=== PATIENT | male | born 1985 | race Caucasian/White ===

== ENCOUNTER 2018-08-18 20:10 | Observation (INO) | payer BC ==
[2018-08-18] MEDS ORDERED: HYDROmorphone 1 MG/ML Syringe IVPUSH STA (21:02)
[2018-08-18] MEDS ORDERED: Ondansetron 4 MG/2 ML SDV IVPUSH ONE ×2 (21:02→23:31)
--- NOTE | 2018-08-18 21:07 | EDM.PDOC ---
ED HPI GENERAL MEDICAL PROBLEM - General Chief Complaint: Abdominal Pain Stated Complaint: VOMITING DIARRHEA Time Seen by Provider: 08/18/18 20:44 Source of Information: Reports: Patient, Family (), RN Notes Reviewed History Limitations: Reports: No Limitations - History of Present Illness INITIAL COMMENTS - FREE TEXT/NARRATIVE: The patient states that he developed gradual onset right upper quadrant abdominal pain around 18:00. He describes the pain as sharp in character. It is made worse with inspiration, but he has not identified any other modifiers. He developed nausea and emesis around 19:30. No recent constipation, diarrhea, or urinary symptoms. No recent fever. No recent shortness of breath or cough. No prior similar symptoms. The patient has not taken any [id number] or home remedies to treat his symptoms. The patient's last oral solid food was around 09:00 this morning. The patient's PCP is Sharon Gallegos. Right Abdomen Pain Score (Numeric/FACES): 8 - Related Data Allergies Allergy/AdvReac Type Severity Reaction Status Date / Time No Known Allergies Allergy Verified 08/18/18 20:35 Home Meds: Home Meds Multivitamin with Minerals [Multiple Vitamin] 1 tab PO DAILY 08/18/18 [History] Past Medical History HEENT History: Reports: Impaired Vision Other HEENT History: wears contacts - Infectious Disease History Infectious Disease History: Reports: Chicken Pox - Past Surgical History HEENT Surgical History: Reports: Oral Surgery (wisdom teeth extraction), Tonsillectomy Social & Family History - Tobacco Use Smoking Status *Q: Former Smoker Years of Tobacco use: 20 Packs/Tins Daily: 2 Month/Year Tobacco Last Used: Quit 2017 Second Hand Smoke Exposure: No - Caffeine Use Caffeine Use: Reports: None - Alcohol Use Alcohol Use History: Yes Alcohol Use Frequency: Rarely - Recreational Drug Use Recreational Drug Use: No - Living Situation & Occupation Living situation: Reports: , with Spouse, with Family (1 child) Occupation: Employed (stamp press operator) ED ROS GENERAL - Review of Systems Review Of Systems: ROS reveals no pertinent complaints other than HPI. ED EXAM, GI/ABD - Physical Exam Exam: See Below Exam Limited By: No Limitations General Appearance: Alert, WD/WN, Mild Distress (Appers uncomfortable) Eyes: Bilateral: Normal Appearance, EOMI Ears: Normal External Exam, Hearing Grossly Normal Nose: Normal Inspection Throat/Mouth: Normal Inspection, Normal Lips, Normal Voice, No Airway Compromise Head: Atraumatic, Normocephalic Neck: Normal Inspection, Full Range of Motion Respiratory/Chest: No Respiratory Distress, Lungs Clear, Normal Breath Sounds, No Accessory Muscle Use Cardiovascular: Normal Peripheral Pulses, No Edema, No Gallop, No JVD, No Murmur , No Rub, Irregularly Irregular (several skipped beats) GI/Abdominal Exam: Normal Bowel Sounds, Soft, Non-Tender (including the RUQ), No Organomegaly, No Distention, No Abnormal Bruit, No Mass (Male) Exam: Deferred Rectal (Males) Exam: Deferred Back Exam: Normal Inspection, Full Range of Motion, CVA Tenderness (R) (mild). No: CVA Tenderness (L) Extremities: Normal Inspection, Normal Range of Motion, No Pedal Edema, Normal Capillary Refill Neurological: Alert, Oriented, Normal Cognition, No Motor/Sensory Deficits Psychiatric: Normal Affect Skin Exam: Warm, Dry, Intact, Normal Color, No Rash Course - Vital Signs Last Recorded V/S: Last Vital Signs Temp 36.7 C 08/19/18 00:30 Pulse 96 08/19/18 00:30 Resp 18 08/19/18 00:30 BP 152/95 H 08/19/18 00:30 Pulse Ox 97 08/19/18 00:30 - Orders/Labs/Meds Orders: Active Orders 24 hr Category Date Time Status Abdomen Pelvis w Cont [CT] Stat Exams 08/18/18 21:02 Taken Sodium Chloride 0.9% [Normal Saline] 1,000 ml Med 08/18/18 21:15 Active IV ASDIRECTED Medication Orders Hydromorphone HCl (Dilaudid) 1 mg IVPUSH Q2H PRN PRN Reason: pain Sodium Chloride (Normal Saline) 1,000 mls @ 150 mls/hr IV ASDIRECTED LYNDA Last Admin: 08/18/18 21:12 Dose: 150 mls/hr Ondansetron HCl (Zofran) 4 mg IVPUSH Q6H PRN PRN Reason: Nausea Labs: Laboratory Tests 08/18/18 08/18/18 08/18/18 Range/Units 20:55 20:55 22:13 WBC 11.05 H (4.23-9.07) K/mm3 RBC 5.26 (4.63-6.08) M/mm3 Hgb 15.7 (13.7-17.5) gm/L Hct 46.0 (40.1-51.0) % MCV 87.5 (79.0-92.2) fl MCH 29.8 (25.7-32.2) pg MCHC 34.1 (32.2-35.5) g/dl RDW Std Deviation 41.4 (35.1-43.9) fL Plt Count 255 (163-337) K/mm3 MPV 10.5 (9.4-12.3) fl Neutrophils % (Manual) 75 H (40-60) % Band Neutrophils % 0 (0-10) % Lymphocytes % (Manual) 15 L (20-40) % Atypical Lymphs % 0 % Monocytes % (Manual) 9 (2-10) % Eosinophils % (Manual) 1 (0.8-7.0) % Basophils % (Manual) 0 L (0.2-1.2) Platelet Estimate Adequate RBC Morph Comment Normal Sodium 138 (136-145) mEq/L Potassium 3.7 (3.5-5.1) mEq/L Chloride 102 (98-107) mEq/L Carbon Dioxide 20 L (21-32) mEq/L Anion Gap 19.7 H (5-15) BUN 19 H (7-18) mg/dL Creatinine 1.0 (0.7-1.3) mg/dL Est Cr Clr Drug Dosing 109.81 mL/min Estimated GFR (MDRD) > 60 (>60) mL/min BUN/Creatinine Ratio 19.0 H (14-18) Glucose 108 H (74-106) mg/dL Calcium 10.1 (8.5-10.1) mg/dL Total Bilirubin 0.7 (0.2-1.0) mg/dL AST 22 (15-37) U/L ALT 47 (16-63) U/L Alkaline Phosphatase 84 (46-116) U/L Total Protein 7.2 (6.4-8.2) g/dl Albumin 4.4 (3.4-5.0) g/dl Globulin 2.8 gm/dL Albumin/Globulin Ratio 1.6 (1-2) Lipase 88 (73-393) U/L Urine Color Yellow (Yellow) Urine Appearance Clear (Clear) Urine pH 5.5 (5.0-8.0) Ur Specific [place] > or = 1.030 (1.005-1.030) Urine Protein Negative (Negative) Urine Glucose (UA) Negative (Negative) Urine Ketones 4+ H (Negative) Urine Occult Blood 1+ H (Negative) Urine Nitrite Negative (Negative) Urine Bilirubin 1+ H (Negative) Urine Urobilinogen 0.2 (0.2-1.0) Ur Leukocyte Esterase Negative (Negative) Urine RBC 5-10 H (0-5) /hpf Urine WBC 0-5 (0-5) /hpf Ur Epithelial Cells Not seen (0-5) /hpf Ur Squamous Epith Cells 0-5 (0-5) /hpf Urine Bacteria Few H (FEW) /hpf Urine Mucus Few (FEW) /hpf Meds: Medications Generic Name Dose Route Start Last Admin Trade Name Freq PRN Reason Stop Dose Admin Hydromorphone HCl 1 mg 08/19/18 00:45 Dilaudid IVPUSH Q2H PRN pain Sodium Chloride 1,000 mls @ 150 mls/hr 08/18/18 21:15 08/18/18 21:12 Normal Saline IV 150 mls/hr ASDIRECTED LYNDA Administration Ondansetron HCl 4 mg 08/19/18 00:51 Zofran IVPUSH Q6H PRN Nausea Discontinued Medications Generic Name Dose Route Start Last Admin Trade Name Freq PRN Reason Stop Dose Admin Diatrizoate Meglum/Diatrizoate Sod 90 ml 08/18/18 22:24 08/18/18 22:42 Gastrografin 37% PO 08/18/18 22:25 90 ml ONETIME ONE Administration Hydromorphone HCl 1 mg 08/18/18 21:02 08/18/18 21:14 Dilaudid IVPUSH 08/18/18 21:03 1 mg ONETIME STA Administration Hydromorphone HCl 1 mg 08/18/18 23:25 08/18/18 23:29 Dilaudid IVPUSH 08/18/18 23:26 1 mg ONETIME ONE Administration Ertapenem 1 gm/ Sodium 100 mls @ 200 mls/hr 08/18/18 23:44 08/18/18 23:57 Chloride IV 08/19/18 00:13 200 mls/hr ONETIME ONE Administration Iopamidol 100 ml 08/18/18 22:24 08/18/18 22:42 Isovue-370 (76%) IV 08/18/18 22:25 100 ml ONETIME ONE Administration Ondansetron HCl 4 mg 08/18/18 21:02 08/18/18 21:14 Zofran IVPUSH 08/18/18 21:03 4 mg ONETIME ONE Administration Ondansetron HCl 4 mg 08/18/18 23:31 08/18/18 23:34 Zofran IVPUSH 08/18/18 23:32 4 mg ONETIME ONE Administration - Re-Assessments/Exams Free Text/Narrative Re-Assessment/Exam: 08/18/18 21:03 The cause of the patient's abdominal pain is not immediately clear. The location of his pain, in the right upper quadrant, strongly suggests acute cholecystitis or, perhaps, an unusual presentation of appendicitis, however, the patient has no tenderness whatsoever to palpation of his entire abdomen. His pain is induced, however, with deep inspiration, and he has diminished abdominal sounds. He has mild right CVA tenderness. I recommended a CT scan of the abdomen and pelvis, with the caveat that I have a low expectation that a diagnosis will be made, but with the advantage that we can rule out several intra-abdominal emergencies. The patient agreed. In the meantime, the patient will receive Dilaudid, Zofran, and IV fluid. 08/18/18 23:[address] Hope of [facility] at 23:25 that the patient has acute appendicitis. His appendix is retrocecal, and his cecum is high. The tip of the appendix is up by the right lobe of the liver. 08/18/18 23:38 CT of the abdomen and pelvis with oral and IV contrast is read by [facility] as: 1. Acute appendicitis. The cecum is mobile and located above the level of the right iliac crest. The appendix is retrocecal and extends above the level of the cecum. The tip of the appendix is close to the right lobe of the liver. 2. No sign of appendiceal perforation or abscess. 08/18/18 23:45 Test results discussed with the patient and his . I recommended calling our surgeon, and the patient was agreeable. Case then discussed with Dr. Bar Hylton, surgeon loader semiconductor dies, at 23:41. He recommended that the patient be given 1 g of Invanz, and be admitted to the hospital. He will see the patient in the morning, in preparation for taking him to the OR. In the meantime, the patient will remain NPO, with IV fluid, pain medication, and antiemetics as necessary. Departure - Departure Time of Disposition: 23:46 Disposition: Refer to Observation Condition: Fair Clinical Impression: Acute appendicitis - Discharge Information *PRESCRIPTION DRUG MONITORING PROGRAM REVIEWED*: Not Applicable *COPY OF PRESCRIPTION DRUG MONITORING REPORT IN PATIENT MARICRUZ: Not Applicable - My Orders Last 24 Hours: My Active Orders 08/18/18 21:02 Abdomen Pelvis w Cont [CT] Stat 08/18/18 21:15 Sodium Chloride 0.9% [Normal Saline] 1,000 ml IV ASDIRECTED - Assessment/Plan Last 24 Hours: My Active Orders 08/18/18 21:02 Abdomen Pelvis w Cont [CT] Stat 08/18/18 21:15 Sodium Chloride 0.9% [Normal Saline] 1,000 ml IV ASDIRECTED
[2018-08-18] MEDS: Sodium Chloride 0.9% 1,000 ML IV SCH (21:12)
[2018-08-18] MEDS ORDERED: Diatrizoate Meglumine/Diatrizoate Sodium 37% 120 ML Bottle PO ONE (22:24)
[2018-08-18] MEDS ORDERED: Iopamidol 755 Mg/ML 200 ML Bottle IV ONE (22:24)
[2018-08-18] MEDS ORDERED: HYDROmorphone 1 MG/ML Syringe IVPUSH ONE (23:25)
[2018-08-18] MEDS ORDERED: Ertapenem 1 GM in Sodium Chloride 0.9% 100 ML IV ONE (23:44)
[2018-08-19] MEDS ORDERED: HYDROmorphone 1 MG/ML Syringe IVPUSH PRN (00:45)
[2018-08-19] MEDS ORDERED: Ondansetron 4 MG/2 ML SDV IVPUSH PRN (00:51)
[2018-08-19] MEDS: Sodium Chloride 0.9% 1,000 ML IV SCH (04:03)
[2018-08-19] MEDS ORDERED: Ondansetron 4 MG/2 ML SDV ONE (07:12)
[2018-08-19] MEDS ORDERED: Rocuronium 50 MG/5 ML Vial ONE (07:12)
[2018-08-19] MEDS ORDERED: Propofol 200 MG/20 ML SDV ONE (07:13)
[2018-08-19] MEDS ORDERED: fentaNYL 250 MCG/5 ML SDV ONE ×2 (07:13→08:20)
[2018-08-19] MEDS ORDERED: Midazolam 1 MG/ML 2 ML SDV ONE (07:13)
[2018-08-19] MEDS ORDERED: Lidocaine 1% 4 ML ONE (07:13)
[2018-08-19] MEDS ORDERED: Bupivacaine 0.5% 10 ML SDV ONE (07:14)
--- NOTE | 2018-08-19 07:22 | HP ---
DATE OF ADMISSION: 08/19/2018 ADMITTING DIAGNOSIS: Acute appendicitis. HISTORY OF PRESENT ILLNESS: Jl is a 33-year-old otherwise healthy male. He presented last night with about a 5-hour history of abdominal pain. He said it started around 5:00 p.m. following a day at work. Pain is located in the right upper quadrant. He said it was sharp in character, severe in intensity. It has been associated with nausea and multiple episodes of emesis. He has anorexia. He denies any fever at home. He presented to the ED last night and underwent a CT scan, which showed acute appendicitis in the retrocecal position in the right upper quadrant. Notably absent is tenderness in the right lower quadrant in the usual location. The patient was admitted overnight and held on antibiotics. PAST MEDICAL HISTORY: None. PAST SURGICAL HISTORY: He has had wisdom teeth and tonsils at age 2. ALLERGIES TO MEDICATIONS: None. CURRENT MEDICATIONS: At home, multivitamin daily. REVIEW OF SYSTEMS: Ten-system review is completely negative except for that listed above. FAMILY HISTORY: Remarkable for diabetes on his mother's side and coronary artery disease on his father's side. SOCIAL HISTORY: Substance history: He is a former smoker; he quit last year. He had a 20-year history of tobacco use as a former smoking. Denies alcohol abuse. Denies illicit drugs. PHYSICAL EXAMINATION: GENERAL: He is alert, although he looks diaphoretic, in no obvious distress. VITAL SIGNS: Temperature 98.1, pulse 87, respiration 18, and blood pressure 141/85. HEAD AND NECK: Normocephalic, atraumatic. He is anicteric. His neck is supple, full range of motion. LUNGS: Clear to auscultation bilaterally. HEART: Regular rate and rhythm. No clicks, murmurs, or rubs. ABDOMEN: Soft. He has tenderness in the right upper quadrant with a positive Rovsing sign. He has guarding in the right upper quadrant. No tenderness in the right lower quadrant. No hernias. No abdominal scars. No palpable masses. EXTREMITIES: No clubbing, cyanosis, or edema. No calf tenderness. INTEGUMENT: No rashes. No lesions. No petechiae. He is diaphoretic, and he is somewhat flushed. NEUROLOGIC: His cranial nerves are grossly intact. Sensation and movement are preserved in all 4 extremities. PSYCHIATRIC: Unremarkable. He has linear thinking with appropriate affect and demeanor. LABORATORY DATA: I reviewed his labs. He has a leukocytosis of 11,000 with a left shift. Chemistry: Bicarb was 20, anion gap 19.7, BUN 19, BUN-creatinine ratio 19, and glucose 108. I looked at the CT scan. He has a high-riding cecum with a retrocecal appendix, which is clearly inflamed and distended with periappendiceal fat stranding consistent with an acute appendicitis. Official reading is not occurred as of yet. ASSESSMENT: Acute appendicitis. PLAN: I will bring him to the operating room for laparoscopic appendectomy. He has been fully informed of the major risks, benefits, and alternatives including injury to bowel, bleeding, risks of anesthesia, recurrent surgery, abscess formation, staple line failure and many others. He gave informed consent. JHON /[id number]
--- NOTE | 2018-08-19 07:30 | PCM.PREANE ---
Preanesthetic Assessment - Anesthesia/Transfusion/Family Hx Anesthesia History: Prior Anesthesia Without Reaction Family History of Anesthesia Reaction: No Transfusion History: No Prior Transfusion(s) - Review of Systems General: Weakness, Malaise Pulmonary: Cough Cardiovascular: Dyspnea on Exertion Gastrointestinal: Abdominal Pain (RLQ), Decreased Appetite, Nausea, Vomiting Neurological: No Symptoms Other: Reports: None - Physical Assessment NPO Status Date: 08/18/18 NPO Status Time: 00:00 Pulse: 87 O2 Sat by Pulse Oximetry: 96 Respiratory Rate: 18 Blood Pressure: 141/85 Temperature: 36.7 C Vital Signs: Last Vital Signs Temp 36.7 C 08/19/18 04:04 Pulse 87 08/19/18 04:04 Resp 18 08/19/18 04:04 BP 141/85 H 08/19/18 04:04 Pulse Ox 96 08/19/18 04:04 Height: 1.8 m Weight: 98.883 kg ASA Class: 2 Mental Status: Alert & Oriented x3 Airway Class: Mallampati = 2 Dentition: Reports: [place](s) Thyro-Mental Finger Breadths: 3 Mouth Opening Finger Breadths: 3 ROM/Head Extension: Full Lungs: Clear to Auscultation, Normal Respiratory Effort Cardiovascular: Regular Rate, Regular Rhythm - Lab Values: Laboratory Last Values WBC 11.05 K/mm3 (4.23-9.07) H 08/18/18 20:55 RBC 5.26 M/mm3 (4.63-6.08) 08/18/18 20:55 Hgb 15.7 gm/L (13.7-17.5) 08/18/18 20:55 Hct 46.0 % (40.1-51.0) 08/18/18 20:55 MCV 87.5 fl (79.0-92.2) 08/18/18 20:55 MCH 29.8 pg (25.7-32.2) 08/18/18 20:55 MCHC 34.1 g/dl (32.2-35.5) 08/18/18 20:55 RDW Std Deviation 41.4 fL (35.1-43.9) 08/18/18 20:55 Plt Count 255 K/mm3 (163-337) 08/18/18 20:55 MPV 10.5 fl (9.4-12.3) 08/18/18 20:55 Neutrophils % (Manual) 75 % (40-60) H 08/18/18 20:55 Band Neutrophils % 0 % (0-10) 08/18/18 20:55 Lymphocytes % (Manual) 15 % (20-40) L 08/18/18 20:55 Atypical Lymphs % 0 % 08/18/18 20:55 Monocytes % (Manual) 9 % (2-10) 08/18/18 20:55 Eosinophils % (Manual) 1 % (0.8-7.0) 08/18/18 20:55 Basophils % (Manual) 0 (0.2-1.2) L 08/18/18 20:55 Platelet Estimate Adequate 08/18/18 20:55 RBC Morph Comment Normal 08/18/18 20:55 Sodium 138 mEq/L (136-145) 08/18/18 20:55 Potassium 3.7 mEq/L (3.5-5.1) 08/18/18 20:55 Chloride 102 mEq/L (98-107) 08/18/18 20:55 Carbon Dioxide 20 mEq/L (21-32) L 08/18/18 20:55 Anion Gap 19.7 (5-15) H 08/18/18 20:55 BUN 19 mg/dL (7-18) H 08/18/18 20:55 Creatinine 1.0 mg/dL (0.7-1.3) 08/18/18 20:55 Est Cr Clr Drug Dosing 109.81 mL/min 08/18/18 20:55 Estimated GFR (MDRD) > 60 mL/min (>60) 08/18/18 20:55 BUN/Creatinine Ratio 19.0 (14-18) H 08/18/18 20:55 Glucose 108 mg/dL (74-106) H 08/18/18 20:55 Calcium 10.1 mg/dL (8.5-10.1) 08/18/18 20:55 Total Bilirubin 0.7 mg/dL (0.2-1.0) 08/18/18 20:55 AST 22 U/L (15-37) 08/18/18 20:55 ALT 47 U/L (16-63) 08/18/18 20:55 Alkaline Phosphatase 84 U/L (46-116) 08/18/18 20:55 Total Protein 7.2 g/dl (6.4-8.2) 08/18/18 20:55 Albumin 4.4 g/dl (3.4-5.0) 08/18/18 20:55 Globulin 2.8 gm/dL 08/18/18 20:55 Albumin/Globulin Ratio 1.6 (1-2) 08/18/18 20:55 Lipase 88 U/L (73-393) 08/18/18 20:55 Urine Color Yellow (Yellow) 08/18/18 22:13 Urine Appearance Clear (Clear) 08/18/18 22:13 Urine pH 5.5 (5.0-8.0) 08/18/18 22:13 Ur Specific [place] > or = 1.030 (1.005-1.030) 08/18/18 22:13 Urine Protein Negative (Negative) 08/18/18 22:13 Urine Glucose (UA) Negative (Negative) 08/18/18 22:13 Urine Ketones 4+ (Negative) H 08/18/18 22:13 Urine Occult Blood 1+ (Negative) H 08/18/18 22:13 Urine Nitrite Negative (Negative) 08/18/18 22:13 Urine Bilirubin 1+ (Negative) H 08/18/18 22:13 Urine Urobilinogen 0.2 (0.2-1.0) 08/18/18 22:13 Ur Leukocyte Esterase Negative (Negative) 08/18/18 22:13 Urine RBC 5-10 /hpf (0-5) H 08/18/18 22:13 Urine WBC 0-5 /hpf (0-5) 08/18/18 22:13 Ur Epithelial Cells Not seen /hpf (0-5) 08/18/18 22:13 Ur Squamous Epith Cells 0-5 /hpf (0-5) 08/18/18 22:13 Urine Bacteria Few /hpf (FEW) H 08/18/18 22:13 Urine Mucus Few /hpf (FEW) 08/18/18 22:13 - Allergies Allergies/Adverse Reactions: Allergies Allergy/AdvReac Type Severity Reaction Status Date / Time No Known Allergies Allergy Verified 08/18/18 20:35 - Blood Blood Available: No Product(s) Available: None - Anesthesia Plan Pre-Op Medication Ordered: None - Acknowledgements Anesthesia Type Planned: General Anesthesia Pt an Appropriate Candidate for the Planned Anesthesia: Yes Alternatives and Risks of Anesthesia Discussed w Pt/Guardian: Yes Pt/Guardian Understands and Agrees with Anesthesia Plan: Yes PreAnesthesia Questionnaire HEENT History: Reports: Impaired Vision Other HEENT History: wears contacts - Infectious Disease History Infectious Disease History: Reports: Chicken Pox - Past Surgical History HEENT Surgical History: Reports: Oral Surgery (wisdom teeth extraction), Tonsillectomy - SUBSTANCE USE Smoking Status *Q: Former Smoker Tobacco Use Within Last Twelve Months: Cigarettes Second Hand Smoke Exposure: Yes Days Per Week of Alcohol Use: 0 Number of Drinks Per Day: 0 Total Drinks Per Week: 0 Recreational Drug Use History: No - HOME MEDS Home Medications: Home Meds Multivitamin with Minerals [Multiple Vitamin] 1 tab PO DAILY 08/18/18 [History] - CURRENT (IN HOUSE) MEDS Current Meds: Current Medications Hydromorphone HCl (Dilaudid) 1 mg IVPUSH Q2H PRN PRN Reason: pain Sodium Chloride (Normal Saline) 1,000 mls @ 150 mls/hr IV ASDIRECTED [facility] Last Admin: 08/19/18 04:03 Dose: 150 mls/hr Ondansetron HCl (Zofran) 4 mg IVPUSH Q6H PRN PRN Reason: Nausea Discontinued Medications Bupivacaine HCl (Sensorcaine-Mpf 0.5%) Confirm Administered Dose 10 ml .ROUTE .STK-MED ONE Stop: 08/19/18 07:15 Diatrizoate Meglum/Diatrizoate Sod (Gastrografin 37%) 90 ml PO ONETIME ONE Stop: 08/18/18 22:25 Last Admin: 08/18/18 22:42 Dose: 90 ml Fentanyl (Sublimaze) Confirm Administered Dose 250 mcg .ROUTE .STK-MED ONE Stop: 08/19/18 07:14 Hydromorphone HCl (Dilaudid) 1 mg IVPUSH ONETIME STA Stop: 08/18/18 21:03 Last Admin: 08/18/18 21:14 Dose: 1 mg Hydromorphone HCl (Dilaudid) 1 mg IVPUSH ONETIME ONE Stop: 08/18/18 23:26 Last Admin: 08/18/18 23:29 Dose: 1 mg Ertapenem 1 gm/ Sodium (Chloride) 100 mls @ 200 mls/hr IV ONETIME ONE Stop: 08/19/18 00:13 Last Admin: 08/18/18 23:57 Dose: 200 mls/hr Lidocaine HCl (Xylocaine-Mpf 1%) Confirm Administered Dose 4 mls @ as directed .ROUTE .STK-MED ONE Stop: 08/19/18 07:14 Iopamidol (Isovue-370 (76%)) 100 ml IV ONETIME ONE Stop: 08/18/18 22:25 Last Admin: 08/18/18 22:42 Dose: 100 ml Midazolam HCl (Versed 1 Mg/Ml) Confirm Administered Dose 2 mg .ROUTE .STK-MED ONE Stop: 08/19/18 07:14 Ondansetron HCl (Zofran) 4 mg IVPUSH ONETIME ONE Stop: 08/18/18 21:03 Last Admin: 08/18/18 21:14 Dose: 4 mg Ondansetron HCl (Zofran) 4 mg IVPUSH ONETIME ONE Stop: 08/18/18 23:32 Last Admin: 08/18/18 23:34 Dose: 4 mg Ondansetron HCl (Zofran) Confirm Administered Dose 4 mg .ROUTE .STK-MED ONE Stop: 08/19/18 07:13 Propofol (Diprivan 20 Ml) Confirm Administered Dose 200 mg .ROUTE .STK-MED ONE Stop: 08/19/18 07:14 Rocuronium [place] (Zemuron) Confirm Administered Dose 50 mg .ROUTE .STK-MED ONE Stop: 08/19/18 07:13
[2018-08-19] MEDS ORDERED: Lactated Ringers 1,000 ML ONE (08:11)
[2018-08-19] MEDS ORDERED: HYDROmorphone 0.5 MG/0.5 ML Syringe ONE ×2 (08:17)
[2018-08-19] MEDS ORDERED: Ketorolac 30 MG/ML SDV ONE (09:28)
[2018-08-19] MEDS ORDERED: fentaNYL 100 MCG/2 ML SDV IVPUSH PRN (09:36)
--- NOTE | 2018-08-19 09:38 | PCM.POSTAN ---
POST ANESTHESIA ASSESSMENT - MENTAL STATUS Mental Status: Alert, Oriented - VITAL SIGNS Pulse Rate: 100 SaO2: 97 Resp Rate: 10 Blood Pressure: 149/90 Temperature: 36.9 C - RESPIRATORY Respiratory Status: Respiratory Rate WNL, Airway Patent, O2 Saturation Stable, Supplemental Oxygen - CARDIOVASCULAR CV Status: Pulse Rate WNL, Blood Pressure Stable - GASTROINTESTINAL GI Status: No Symptoms - PAIN Pain Score: 0 - POST OP HYDRATION Hydration Status: Adequate & Stable - OBSERVATIONS Free Text/Narrative:: no anesthesia complications noted
[2018-08-19] MEDS ORDERED: Acetaminophen 325 MG Tab PO PRN (10:08)
[2018-08-19] MEDS ORDERED: Ibuprofen 800 MG Tab PO PRN (10:09)
--- NOTE | 2018-08-19 10:34 | CT ---
CT abdomen and pelvis Technique: Multiple axial sections were obtained from above the dome of the diaphragm inferiorly through the pubic symphysis. Intravenous contrast was utilized. No oral contrast was utilized. Delayed images were obtained through the bladder. Comparison: No previous abdominal imaging. Findings: Small portion of the visualized lung bases show nothing acute. Liver contains no focal abnormality. Spleen appears within normal limits. Small amount of contrast reflux into the distal esophagus is noted. Adrenal glands show no nodule. Pancreas is within normal limits. Gallbladder contains no calcified gallstones. Kidneys show symmetric contrast enhancement without hydronephrosis or mass. Aorta shows no aneurysm. No retroperitoneal adenopathy is seen. No mesenteric abnormalities are noted. Appendix is slightly prominent in size with mild surrounding inflammatory change. Cecum lies at the upper level of the iliac crest with appendix extending superiorly. No pelvic mass or adenopathy is seen. Bladder wall is slightly thickened most likely due to lack of distention. Delayed images show contrast within the distal ureters and within the bladder. Bone window settings were reviewed which appear within normal limits for the patient's age. Impression: 1. Findings compatible with appendicitis. 2. Other normal findings as noted above. Diagnostic code #5 I agree with preliminary report issued by [employer] ([facility] report finalized on 08/19/18, 12:32 AM Central Time)
--- NOTE | 2018-08-19 16:24 | OR ---
DATE OF OPERATION: 08/19/2018 SURGEON: Bar Hylton MD PREOPERATIVE DIAGNOSIS: Acute appendicitis. POSTOPERATIVE DIAGNOSIS: Acute appendicitis. OPERATION PERFORMED: Laparoscopic mobilization of the right colon and a laparoscopic appendectomy. ANESTHESIA: General with endotracheal intubation. FINDINGS: He had cecum quite high in the right upper quadrant with a retrocecal appendix. To reach the appendix, I had to mobilize the right colon from its embryonic attachment to the right pericolic gutter. The appendix was densely attached to both the retroperitoneum and the posterior aspect of the cecum. ESTIMATED BLOOD LOSS: 5 mL. COMPLICATIONS: None. PATHOLOGY: Appendix. DISPOSITION: Stable at the end of the procedure. INDICATION: The patient presented with acute appendicitis to the ED in the middle of the night last night. His diagnosis was confirmed by CT scan. He had a leukocytosis of 11,800. He was admitted on IV antibiotics and prepared for surgery early this morning. He was fully informed of the major risks of the procedure. These are detailed from H and P. He gave informed consent to what was done. DESCRIPTION OF PROCEDURE: The patient was brought to the operating room and placed in a supine position on the operating table. He was given general anesthesia, intubated. He was straight cathed to drain his bladder. The abdomen was prepped and draped in the usual sterile fashion. I first undertook abdominal insufflation through a Veress needle in the left upper quadrant. There was no restrictions. I insufflated to a pressure of 15 mmHg with CO2 gas. Having seen the CT, I placed a 5 mm port in the right lower quadrant, and this was done using 5 mm 30-degree scope. I visualized the tissue planes of the port passed into the peritoneum without contact to underlying bowel. I visualized a Veress needle up in the air in the left upper quadrant. This was removed. The gas was switched to the existing port. I inspected for any injuries to the stomach underneath the Veress needle stick, and there were none. A 12 mm port was passed just under the umbilicus. Under direct laparoscopic visualization, an epigastric 5 mm port was passed in the epigastrium, 4 fingerbreadths above the umbilicus. I identified the cecum in the right upper quadrant. I followed the tinea of the cecum as it passed underneath the cecum itself. The appendix was not visible. There were abnormal attachments of the terminal ileum and cecum to the right pericolic gutter. These were taken down with a scissor, with electrocautery. At this point, I was able to visualize the distal ileum as I entered the cecum. The appendix once again was not visualized. I undertook a mobilization of the right colon along the white line of Toldt. I the attachments, and then this was done with a combination of blunt and sharp dissection with a scissor mobilizing the colon medially until I encountered a tubular structure on the posterior aspect of the cecum. I followed this tubular structure up almost to the gallbladder. This was clearly an inflamed appendix. There was no purulence or abscess collection around the appendix. This did not appear to be a perforated appendix. Once I confirmed the identity of this structure, I traveled backwards until I encountered the exit of the appendix from the cecum. I made a window in the mesoappendix and then passed a linear cutter across the base of the appendix at its exit from the cecum. I then lifted the base of the appendix and followed the trajectory along the course of the posterior aspect of the cecum in the retroperitoneum. The attachments of the appendix were taken down with great care using laparoscopic scissor on electrocautery. Great care was taken not to engage electrocautery anywhere near the cecum. As I followed the appendix up to its trajectory, I reached finally the tip at the hepatic flexure and the tip was transected first using a clip coffee roaster to control the mesoappendix and then the mesoappendix was transected at this location. Finally, the appendix was completely dissociated from its attachment to both the retroperitoneum and the cecum and ascending colon. The appendix was placed in an EndoCatch bag. I thoroughly irrigated the right upper quadrant. I checked for any bleeding. There was none. I irrigated over the liver, had some difficulty reaching the liver given the height of the patient with the rather short irrigation apparatus, but I managed to irrigate and aspirate all the irrigant in the end. Once I was assured of complete hemostasis, the appendix was withdrawn. The Everett Mendoza suture passer was used to obliterate the fascial defect using 0 Vicryl stitch under laparoscopic visualization. The gas was desufflated and that suture was tied down. The camera and instruments were removed. The gas was desufflated through the open ports. The ports were then removed. 4-0 Monocryl was used to close the skin. Dermabond was applied for a sterile barrier. He had no complications and tolerated the procedure well for total of 5 mL of blood loss. He was then moved to recovery in stable condition. JHON /[id number]
== END 2018-08-19 13:34 | disposition home or self-care (01) ==
LOC: JD.ED 20:10 → JD.MS 08-19 00:05
PROVIDERS: ADMIT Surgery; ATTEND Surgery
DX: K35.30 Acute appendicitis with localized peritonitis, without perforation or gangrene (principal); Z87.891 Personal history of nicotine dependence; Z79.899 Other long term (current) drug therapy
CPT/HCPCS: 36415; 44970; 74177; 80053; 81001; 83690; 85007; 85027; 93005; 96361; 96374; 96375; 96376; 99285; A9270; J0694; J1170; J1335; J1885; J2001; J2250; J2405; J2704; J3010; J3490; J7030; J7040; J7120; Q9963; Q9967; 00840; G0378